=== PATIENT | female | born 1995 | race Caucasian/White ===

== ENCOUNTER 2021-03-15 08:35 | Emergency (ER) | payer BC ==
[~2021-03-15] VITALS: Ht 152.4 cm; Wt 65.8 kg
[2021-03-15 09:02] LABS: HEMATOCRIT 41.9 % (37.0-47.0); HEMOGLOBIN 13.8 gm/dL (12.0-15.0); MCH 30.2 pg (26.0-34.0); MCV 91.3 fL (80.0-100.0); PLATELET COUNT 214 thou/uL (150-400); RBC 4.58 mil/uL (4.20-5.00); RDW 13.4 % (10.5-14.5); WBC 18.8 thou/uL (4.0-11.0)
[2021-03-15 09:02] LABS: URINE BILIRUBIN NEGATIVE (Negative); URINE BLOOD 1+ (Negative); URINE CLARITY CLEAR; URINE COLOR YELLOW; URINE GLUCOSE-RANDOM* NEGATIVE (Negative); URINE KETONES 1+ (Negative); URINE LEUKOCYTES-REFLEX 2+ (Negative); URINE NITRITE-REFLEX NEGATIVE (Negative); URINE PROTEIN (DIPSTICK) NEGATIVE (Negative); URINE SPECIFIC GRAVITY 1.025 (1.005-1.035); URINE UROBILINOGEN 0.2 E.U./dl (0.2-1.0)
[2021-03-15 09:36] LABS: CASTS None Seen /LPF (None Seen); CRYSTALS None Seen /LPF (None Seen); SQUAMOUS 4-10 Moderate /LPF (0-3)
[2021-03-15 09:37] LABS: BACTERIA-REFLEX 1-9 Few /HPF (None Seen); URINE RBC 1-2 Rare /HPF (NONE SEEN); URINE WBC-REFLEX 6-15 Few /HPF (0-5)
[2021-03-15 09:51] LABS: ALBUMIN 4.3 g/dL (3.4-5.0); CALCIUM 9.4 mg/dL (8.5-10.1); CREATININE 0.8 mg/dL (0.6-1.0); POTASSIUM 4.5 mmol/L (3.5-5.1); TOTAL BILIRUBIN 0.5 mg/dL (0.2-1.0); TOTAL PROTEIN 7.8 g/dL (6.4-8.2)
[2021-03-15 10:22] LABS: ABSOLUTE NEUTROPHILS 16.7 thou/uL (1.4-8.2)
[2021-03-15] MEDS ORDERED: METRONIDAZOLE500 M4 PO (10:25)
[2021-03-15] MEDS ORDERED: DOXYCYCLINE 10100 MG PO (10:25)
[2021-03-15] MEDS ORDERED: ZOFRAN ODT4 MG PO (10:26)
[2021-03-15] MEDS ORDERED: NORCO5 PO (10:27)
[2021-03-15 10:48] VITALS: BP 102/54
== END 2021-03-15 10:50 | disposition home or self-care (01) ==
LOC: ER 08:35
PROVIDERS: Emergency Medicine
DX: R10.2 Pelvic and perineal pain (principal); D72.829 Elevated white blood cell count, unspecified